=== PATIENT | female | born 1995 | race Hispanic/Latino ===

== ENCOUNTER 2019-03-04 15:09 | Inpatient (IN) | payer OTHER ==
[2019-03-04] MEDS ORDERED: MEPERIDINE HCL 25 MG/0.5 ML IV PRN (15:30)
[2019-03-04] MEDS ORDERED: MIDAZOLAM HCL 2 MG/2 ML INJ IV PRN (15:30)
[2019-03-04] MEDS ORDERED: OXYTOCIN 10 UNIT/ML ML IV ONE (15:37)
[2019-03-04] MEDS ORDERED: METHYLERGONOVINE 0.2MG/ML AMP IM ONE (15:38)
[2019-03-04] MEDS ORDERED: CARBOPROST TROME 250 MCG/ML IM ONE (15:38)
[2019-03-04] MEDS ORDERED: OXYTOCIN/LR 20 UNIT/1,000 ML BAG IV ONE (15:38)
[2019-03-04] MEDS ORDERED: LIDOCAINE 1% 20 ML MDV ONE ×2 (15:43→15:44)
[2019-03-04] MEDS ORDERED: MEPERIDINE HCL 25 MG/0.5 ML ONE (15:47)
[2019-03-04] MEDS ORDERED: LIDOCAINE 1% 20 ML MDV IV ONE (15:49)
[2019-03-04] MEDS ORDERED: MIDAZOLAM HCL 2 MG/2 ML INJ ONE (15:52)
[2019-03-04 16:00] LABS: RPR Titer ND
[2019-03-04 16:10] LABS: Absolute Lymphocytes (CBC) 1.1 K/uL (0.7-4.9); Basophils % 0.2 % (0-1.3); Eosinophils % 0.1 % (0-4.4); Lymphocytes % 7.9 % (15.3-44.8); MPV 9.5 fL (7.6-11.3); Monocytes % 3.9 % (3.3-12.3); RBC Red Blood Cell Count 4.21 M/uL (3.86-4.86)
[2019-03-04 16:14] LABS: Glucose Level 107 mg/dL (74-106)
[2019-03-04 17:15] LABS: Blood Morphology Comment NOT SEEN (NOT SEEN); Platelet Estimate ADEQ; Urine White Blood Cell Casts OK
[2019-03-04] MEDS ORDERED: METHYLERGONOVINE 0.2MG/ML AMP IM PRN (17:19)
[2019-03-04] MEDS ORDERED: DOCUSATE NA/SENNA CONC 1 TAB PO PRN (17:19)
[2019-03-04] MEDS ORDERED: BISACODYL 10 MG RECTAL SUPP RECT PRN (17:19)
[2019-03-04] MEDS ORDERED: ONDANSETRON 4 MG/2 ML VIAL IV PRN (17:19)
[2019-03-04] MEDS ORDERED: CARBOPROST TROME 250 MCG/ML IM PRN (17:19)
[2019-03-04] MEDS ORDERED: ACETAMINOPHEN 500 MG TAB PO PRN (17:19)
[2019-03-04] MEDS ORDERED: Rho(D) IG (HUMAN) 300 MCG SYR IM ONE (17:49)
[2019-03-04] MEDS ORDERED: OXYTOCIN/LR 20 UNIT/1,000 ML BAG IV SCH (18:00)
[2019-03-04] MEDS ORDERED: MEASLES,MUMPS,RUBELLA VAC 0.5ML SQVAC ONE (18:00)
[2019-03-04] MEDS ORDERED: Tdap (Diph,Pertuss(Acell),Tet Vac) 0.5 ML SYR IMVAC ONE (18:00)
[2019-03-04 18:08] LABS: Urine Appearance CLEAR; Urine Bilirubin NEGATIVE (NEG); Urine Blood NEGATIVE (NEG); Urine Color DK YELLOW; Urine Glucose NEGATIVE (NEG); Urine Protein TRACE (NEG); Urine pH 7.5 (5.0-7.0)
[2019-03-04 18:12] LABS: Urine Microscopic Reflex NO UMIC
[2019-03-04 18:27] LABS: Barbiturates NEGATIVE (NEGATIVE); Benzodiazepines NEGATIVE (NEGATIVE); Cocaine NEGATIVE (NEGATIVE); METHAMPHETAM POSITIVE (NEGATIVE); Methadone NEGATIVE (NEGATIVE); Opiates NEGATIVE (NEGATIVE); Phencyclidine NEGATIVE (NEGATIVE); THC Cannibis POSITIVE (NEGATIVE)
[2019-03-04 21:29] LABS: RPR (Rapid Plasma Reagin) NON-REACT (NON-REACT)
[2019-03-04 23:12] VITALS: BMI 25.7
[2019-03-05] MEDS: IBUPROFEN 200 MG TAB PO PRN (03:25)
[2019-03-05 05:13] LABS: Absolute Lymphocytes (CBC) 3.3 K/uL (0.7-4.9); Basophils % 0.2 % (0-1.3); Eosinophils % 0.3 % (0-4.4); Hematocrit 32.9 % (36.0-45.0); Lymphocytes % 19.8 % (15.3-44.8); MPV 9.8 fL (7.6-11.3); Monocytes % 4.9 % (3.3-12.3); RBC Red Blood Cell Count 3.69 M/uL (3.86-4.86)
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
--- NOTE | 2019-03-05 12:30 | PN ---
Subjective: Patient had a very good response to the first 25 mcg Cytotec, was vaishnavi every 1-2 minutes, therefore it was decided not to put in the second Cytotec. She progressed to approximately 3 cm, 60-70% effaced, vertex, well applied. She is still vaishnavi every 1-2 minutes. Baby looks very good. Vital signs are all stable. She had admission urinalysis, it looks somewhat suspicious f or a bladder infection. We will probably have the culture sometime tomorrow. Patient informed, this morning, rupture of membranes, clear fluid. The patient had Stadol during the night. Says her last delivery was completely natural without Stadol or anything but she came in active rapidly advancing labor. She can have more Stadol if she wishes and of course, if she wishes an epidural that is up to her too. Full labor talk again given this morning with the patient and . Anticipate deliver y sometime later today. SRIRAM/LIAM Voice ID: [id number] Report ID: [id number]
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
[2019-03-06] MEDS ORDERED: Tdap (Diph,Pertuss(Acell),Tet Vac) 0.5 ML SYR IMVAC ONE (09:44)
[2019-03-06] MEDS ORDERED: MEASLES,MUMPS,RUBELLA VAC 0.5ML SQVAC ONE (09:45)
[2019-03-06 11:19] VITALS: BP 116/65; TEMP 97.8
[2019-03-06] MEDS: IBUPROFEN 200 MG TAB PO PRN (17:35)
--- NOTE | 2019-03-07 06:05 | DS ---
Date of Discharge: 03/06/2019 Franca Sharpe, a 24-year-old primigravida at 34 weeks, followed antepartum by [facility], although it turns out, she had 1 visit. Came into our institution in advanced labor, delivered rapidly of a 4 pounds 7 ounce female, Apgars 9 and 9. Small first-degree lacerations repaired with 2-0 chromic. DICTATION ENDS HERE SRIRAM/LIAM Voice ID: [id number] Report ID: [id number]
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
[2019-03-08 02:49] LABS: HBsAG Nonreactive (Nonreactive)
== END 2019-03-06 18:11 | disposition home or self-care (01) | DRG 806 ==
LOC: L&D 15:09 → 2ND-WC 15:15
PROVIDERS: ADMIT Specialist; ATTEND Specialist
PROC: 10E0XZZ Delivery of Products of Conception, External Approach (ICD-10-PCS; principal; 2019-03-04)
PROC: 0HQ9XZZ Repair Perineum Skin, External Approach (ICD-10-PCS; 2019-03-04)
DX: O60.14X0 Preterm labor third trimester with preterm delivery third trimester, not applicable or unspecified (principal); O99.323 Drug use complicating pregnancy, third trimester; Z37.0 Single live birth; O70.0 First degree perineal laceration during delivery; Z3A.34 34 weeks gestation of pregnancy; O26.893 Other specified pregnancy related conditions, third trimester; Z67.91 Unspecified blood type, Rh negative; F15.90 Other stimulant use, unspecified, uncomplicated; F12.90 Cannabis use, unspecified, uncomplicated
CPT/HCPCS: 36415; 80307; 81003; 82947; 85025; 86592; 86762; 86850; 86900; 86901; 87086; 87088; 87340; 88307; 90471; 90707; 90715; G0433; J2175; J2210; J2250; J2590

== ENCOUNTER 2024-04-17 07:45 | Emergency (ER) | payer OTHER ==
--- OUTSIDE RECORDS SUMMARY | 2024-04-17 07:48 | XMS REPORT | Continuity of Care Document ---
Author Name Unknown Address [address] [place] [address] [facility] Address 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 Name Role Phone MONA FIERRO Primary Care Physician Unav ailDEBRA Sofia Attending Clinician UnavailDebra Hines CNM Attending Clinician [phone] Debra Woodward CNM Attending Clinician [phone] MONA FIERRO Attending Clinician Unavail able Vadim Mona GOMEZ Attending Clinician + Doctor Unassigned, [place] Attending Clinician U navailable [facility]ending [facility]ician Unava ilable FORTINO OHARA Attending Clinician Unavailab Fortino Hassan Attending Clinician + [phone] SAVANNAH ALTAMIRANO Attending Clinician UnavailSavannah Mclean Attending Clinician [phone] Tesha Romero MD Attending Clinician [phone] NADEGE NOLASCO Attending Clinician Unavailable NADEGE NOLASCO Attending Clinician Unavailable TESHA ROMERO Admitting Clinician Unavailable Payers Payer Name Policy Type Policy Number Effective Date Expirati on Date Source [facility] [id number] 00:00:00 [facility] [id number] Problems Condition Name Condition Details Condition Category Status Onset Date Resolution Date Last Treatment Date Treating Clinician Comments Source History of asthma History of asthma Disease Active 03-27 00:00: 00 Overview: Formattin g of this note might be different from the original. As child only [facility] Obesity affecting Obesity affecting Disease Active 03-27 00:00: 00 [facility] Rh negative state in antepartum period Rh negative state in antepartum period Disease Active 11-17 00:00: 00 Overview: Formattin g of this note might be different from the original. Rhogam at 28 weeks [facility] High-risk High-risk Disease Active 11-16 00:00: 00 [facility] History of delivery History of delivery Disease Active 11-16 00:00: 00 Overview: Formattin g of this note might be different from the original. Reports at 34 weeks PPROM [facility] Other general counseling and advice for contracept breezy management Other general counseling and advice for contracept breezy management Disease Resolve d 2019-08 0-15 00:00: 00 2024-03-26 00:00:00 2024-03-26 14:04:22 [facility] Abdominal pain, generalize d Abdominal pain, generalize d Disease Resolve d 2019-08 0-15 00:00: 00 2024-03-26 00:00:00 2024-03-26 14:04:18 [facility] Obesity (BMI 30-39.9) Obesity (BMI 30-39.9) Disease Resolve d 3 00:00: 00 2024-03-26 00:00:00 2024-03-26 14:04:24 [facility] care and examinatio n of lactating mother care and examinatio n of lactating mother Disease Resolve d 24 00:00: 00 2020-06-10 00:00:00 2020-06-10 14:06:15 [facility] Normal labor Normal labor Disease Resolve d 04-26 00:00: 2020-06-10 00:00:00 2020-06-10 14:06:38 [facility] 37 weeks gestation of 37 weeks gestation of Disease Resolve d 2019-0 8-31 00:00: 00 2020-06-10 00:00:00 2020-06-10 14:06:49 [facility] COVID-19 virus infection COVID-19 virus infection Disease Resolve d 2019- 8-31 00:00: 2020-06-10 00:00:00 2020-06-10 14:06:48 [facility] Liveborn , of silva , born in hospital by vaginal delivery Liveborn , of silva , born in hospital by vaginal delivery Disease Resolve d 8- 00:00: 00 2020-06-10 00:00:00 2020-06-10 14:06:42 [facility] Maternal varicella, non-immune Maternal varicella, non-immune Disease Active 2019- 3-24 00:00: 2020-06-10 00:00:00 2020-06-10 14:06:11 Overview: Formattin g of this note might be different from the original. Address pp [facility] Multiparit y Multiparit y Disease Resolve d 2019-0 3-23 00:00: 2020-06-10 00:00:00 2020-06-10 14:06:40 [facility] Family history of defect of abdominal wall Family history of defect of abdominal wall Disease Resolve d 2018-0 4-09 00:00: 2020-06-10 00:00:00 2020-06-10 14:06:45 [facility] Vaginal bleeding in Vaginal bleeding in Disease Resolve d 2019-0 7-23 00:00: 00 2020-04-26 00:00:00 2020-04-26 17:05:30 [facility] Yeast infection Yeast infection Disease Resolve d 2019-0 3-26 00:00: 00 2020-04-26 00:00:00 2020-04-26 17:05:32 [facility] Allergies, Adverse Reactions, Alerts Allergy Name Allergy Type Status Severity Reaction(s) Onset Date Inactive Date Treating Clinician Comments Source NO KNOWN ALLERGIE S Drug Class Active [facility] Social History Social Habit Start Date Stop Date Quantity Comments Source ASSERTION 2023-12-02 00:00:00 [facility] Alcoholic beverage intake 2024-03-26 00:00:00 2024-03-26 00:00:00 Ex-drinker (finding) [facility] Alcohol intake 2023-07-03 00:00:00 2023-07-03 00:00:00 Current non-drinker of alcohol (finding) [facility] Exposure to SARS-CoV-2 (event) 2022-10-08 00:00:00 2022-10-18 14:02:00 Not sure [facility] Tobacco use and exposure 2022-05-03 00:00:00 2022-05-03 00:00:00 Smokeless tobacco non-user [facility] History of Social function 2022-05-03 00:00:00 2022-05-03 00:00:00 [facility] Sex assigned at 1995 00:00:00 1995 00:00:00 [facility] Smoking Status Start Date Stop Date Source Never smoked tobacco [facility] Medications Ordered Medication Name Filled Medication Name Start Date Stop Date Current Medication? Ordering Clinician Indication Dosage Frequency Signature (SIG) Comments Components Source medroxyPROG ESTERone (DEPO-PROVE RA) syringe 150 mg 2022-08 15:30: 00 03-26 19:05 :03 No [id number] 150mg [facility] medroxyPROG ESTERone (DEPO-PROVE RA) syringe 150 mg 05-03 17:45: 00 10-18 20:04 :00 No [id number] 150mg 150 mg, Intramuscu lar, [id number], 3 doses, First dose on Sun05/03/22 at 1245, Last dose on Sun10/18/22 at 1245, Routine [facility] medroxyPROG ESTERone (DEPO-PROVE RA) injection 150 mg 3-17 21:30: 00 10-12 22:29 :00 No [id number] 150mg [facility] medroxyPROG ESTERone (DEPO-PROVE RA) injection 150 mg 2019-08 19:15: 00 03-02 15:04 :00 No [id number] 150mg [facility] vit calc,iron,f olic ( VITAMIN ORAL) 04-27 05:18: 34 04-27 00:00 :00 No Take by mouth. [facility] vitamin w/FA tablet 04-27 00:00: 00 11-10 00:00 :00 No [id number] 102 1{tbl} Take 1 tablet by mouth daily. [facility] docusate calcium 240 mg capsule 04-27 00:00: 00 11-10 00:00 :00 No [id number] 102 240mg Take 1 capsule by mouth once daily as needed for Constipati on. [facility] ferrous sulfate 325 mg (65 mg iron) tablet 04-27 00:00: 11-10 00:00 :00 No [id number] 102 325mg Take 1 tablet by mouth 2 (two) times daily. [facility] ibuprofen 600 mg tablet 04-27 00:00: 00 11-10 00:00 :00 No [id number] 102 600mg Take 1 tablet by mouth every 6 (six) hours as needed (Pain). Take with food or milk. [facility] vitamin w/FA tablet 04-27 00:00: 00 11-10 00:00 :00 No [id number] 102 1{tbl} Take 1 tablet by mouth daily. [facility] albuterol 90 mcg/actuati on inhaler 12-03 00:00: 11-10 00:00 :00 No [id number] 2{puff} Inhale 2 Puffs every 6 (six) hours as needed for Wheezing or Shortness of Breath. [facility] Immunizations Ordered Immunization Name Filled Immunization Name Date Status Comments Source HPV9 2020-12-09 00:00:00 Completed [facility] HPV9 2020-12-09 00:00:00 Completed [facility] HPV9 2020-12-09 00:00:00 Completed [facility] HPV9 2020-12-09 00:00:00 Completed [facility] HPV9 2020-12-09 00:00:00 Completed [facility] HPV9 2020-12-09 00:00:00 Completed [facility] HPV9 2020-09-02 00:00:00 Completed [facility] HPV9 2020-09-02 00:00:00 Completed [facility] HPV9 2020-09-02 00:00:00 Completed [facility] HPV9 2020-09-02 00:00:00 Completed [facility] HPV9 2020-09-02 00:00:00 Completed [facility] HPV9 2020-09-02 00:00:00 Completed [facility] HPV9 2020-06-10 00:00:00 Completed [facility] HPV9 2020-06-10 00:00:00 Completed [facility] HPV9 2020-06-10 00:00:00 Completed [facility] HPV9 2020-06-10 00:00:00 Completed [facility] HPV9 2020-06-10 00:00:00 Completed [facility] HPV9 2020-06-10 00:00:00 Completed [facility] TDAP 2020-03-03 00:00:00 Completed [facility] Rho (d) Immune Globulin 2020-03-03 00:00:00 Completed [facility] TDAP 2020-03-03 00:00:00 Completed [facility] Rho (d) Immune Globulin 2020-03-03 00:00:00 Completed [facility] TDAP 2020-03-03 00:00:00 Completed [facility] Rho (d) Immune Globulin 2020-03-03 00:00:00 Completed [facility] TDAP 2020-03-03 00:00:00 Completed [facility] Rho (d) Immune Globulin 2020-03-03 00:00:00 Completed [facility] TDAP 2020-03-03 00:00:00 Completed [facility] Rho (d) Immune Globulin 2020-03-03 00:00:00 Completed [facility] TDAP 2020-03-03 00:00:00 Completed [facility] Rho (d) Immune Globulin 2020-03-03 00:00:00 Completed [facility] TDAP Unknown Completed [facility] Rho (d) Immune Globulin Unknown Completed [facility] HPV9 Unknown Completed [facility] HPV9 Unknown Completed [facility] HPV9 Unknown Completed [facility] TDAP Unknown Completed [facility] Rho (d) Immune Globulin Unknown Completed [facility] HPV9 Unknown Completed [facility] TDAP Unknown Completed [facility] Rho (d) Immune Globulin Unknown Completed [facility] TDAP Unknown Completed [facility] Rho (d) Immune Globulin Unknown Completed [facility] TDAP Unknown Completed [facility] Rho (d) Immune Globulin Unknown Completed [facility] TDAP Unknown Completed [facility] Rho (d) Immune Globulin Unknown Completed [facility] TDAP Unknown Completed [facility] Rho (d) Immune Globulin Unknown Completed [facility] HPV9 Unknown Completed [facility] HPV9 Unknown Completed [facility] HPV9 Unknown Completed [facility] TDAP Unknown Completed [facility] Rho (d) Immune Globulin Unknown Completed [facility] HPV9 Unknown Completed [facility] HPV9 Unknown Completed [facility] HPV9 Unknown Completed [facility] TDAP Unknown Completed [facility] Rho (d) Immune Globulin Unknown Completed [facility] HPV9 Unknown Completed [facility] HPV9 Unknown Completed [facility] HPV9 Unknown Completed [facility] TDAP Unknown Completed [facility] Rho (d) Immune Globulin Unknown Completed [facility] HPV9 Unknown Completed [facility] HPV9 Unknown Completed [facility] HPV9 Unknown Completed [facility] TDAP Unknown Completed [facility] Rho (d) Immune Globulin Unknown Completed [facility] HPV9 Unknown Completed [facility] HPV9 Unknown Completed [facility] HPV9 Unknown Completed [facility] TDAP Unknown Completed [facility] Rho (d) Immune Globulin Unknown Completed [facility] HPV9 Unknown Completed [facility] HPV9 Unknown Completed [facility] HPV9 Unknown Completed [facility] Vital Signs Vital Name Observation Time Observation Value Comments S ource Systolic blood pressure 2024-03-26 18:38:00 122 mm[Hg] [facility] Diastolic blood pressure 2024-03-26 18:38:00 67 mm[Hg] [facility] Heart rate 2024-03-26 18:38:00 74 /min [facility] Body temperature 2024-03-26 18:38:00 36.61 Yolanda [facility] Body height 2024-03-26 18:38:00 162.6 cm [facility] Body weight 2024-03-26 18:38:00 88.089 kg [facility] BMI 2024-03-26 18:38:00 33.33 kg/m2 [facility] Systolic blood pressure 2023-07-03 14:08:00 122 mm[Hg] [facility] Diastolic blood pressure 2023-07-03 14:08:00 62 mm[Hg] [facility] Heart rate 2023-07-03 14:08:00 54 /min [facility] Body temperature 2023-07-03 14:08:00 35.94 Yolanda [facility] Respiratory rate 2023-07-03 14:08:00 18 /min [facility] Body height 2023-07-03 14:08:00 162.6 cm [facility] Body weight 2023-07-03 14:08:00 82.01 kg [facility] BMI 2023-07-03 14:08:00 31.03 kg/m2 [facility] Systolic blood pressure 2022-10-18 20:02:00 121 mm[Hg] [facility] Diastolic blood pressure 2022-10-18 20:02:00 77 mm[Hg] [facility] Heart rate 2022-10-18 20:02:00 71 /min [facility] Body temperature 2022-10-18 20:02:00 36.61 Yolanda [facility] Respiratory rate 2022-10-18 20:02:00 18 /min [facility] Body height 2022-10-18 20:02:00 162.6 cm [facility] Body weight 2022-10-18 20:02:00 81.829 kg [facility] BMI 2022-10-18 20:02:00 30.97 kg/m2 [facility] Systolic blood pressure 2022-07-26 20:01:00 110 mm[Hg] [facility] Diastolic blood pressure 2022-07-26 20:01:00 64 mm[Hg] [facility] Heart rate 2022-07-26 20:01:00 67 /min [facility] Body temperature 2022-07-26 20:01:00 36.56 Yolanda [facility] Respiratory rate 2022-07-26 20:01:00 17 /min [facility] Body height 2022-07-26 20:01:00 162.6 cm [facility] Body weight 2022-07-26 20:01:00 81.466 kg [facility] BMI 2022-07-26 20:01:00 30.83 kg/m2 [facility] Systolic blood pressure 2022-05-03 16:53:00 110 mm[Hg] [facility] Diastolic blood pressure 2022-05-03 16:53:00 62 mm[Hg] [facility] Heart rate 2022-05-03 16:53:00 68 /min [facility] Body temperature 2022-05-03 16:53:00 36.56 Yolanda [facility] Respiratory rate 2022-05-03 16:53:00 18 /min [facility] Body height 2022-05-03 16:53:00 162.6 cm [facility] Body weight 2022-05-03 16:53:00 80.241 kg [facility] BMI 2022-05-03 16:53:00 30.36 kg/m2 [facility] Systolic blood pressure 2022-02-02 18:25:00 118 mm[Hg] [facility] Diastolic blood pressure 2022-02-02 18:25:00 70 mm[Hg] [facility] Heart rate 2022-02-02 18:25:00 79 /min [facility] Body temperature 2022-02-02 18:25:00 36.61 Yolanda [facility] Respiratory rate 2022-02-02 18:25:00 18 /min [facility] Body weight 2022-02-02 18:25:00 77.384 kg [facility] BMI 2022-02-02 18:25:00 29.28 kg/m2 [facility] Systolic blood pressure 2021-11-10 20:38:00 125 mm[Hg] [facility] Diastolic blood pressure 2021-11-10 20:38:00 67 mm[Hg] [facility] Heart rate 2021-11-10 20:38:00 85 /min [facility] Body temperature 2021-11-10 20:38:00 36.44 Yolanda [facility] Respiratory rate 2021-11-10 20:38:00 16 /min [facility] Body height 2021-11-10 20:38:00 162.6 cm [facility] Body weight 2021-11-10 20:38:00 81.965 kg [facility] BMI 2021-11-10 20:38:00 31.02 kg/m2 [facility] Procedures Procedure Date / Time Performed Performing Clinician Source ALPHA FETOPROTEIN-MATERNAL SER 2024-03-26 19:35:00 Debra Woodward [facility] CBC WITH DIFF 2024-03-26 19:35:00 Debra Woodward [facility] GLYCOSYLATED HEMOGLOBIN (A1C) 2024-03-26 19:35:00 Debra Woodward [facility] HEPATITIS B SURFACE ANTIGEN 2024-03-26 19:35:00 Debra Woodward [facility] HCV ANTIBODY 2024-03-26 19:35:00 [facility] 2024-03-26 19:35:00 Debra Woodward [facility] POCT TEST 2024-03-26 18:39:00 Madisyn Woodward [facility] POCT URINALYSIS W/O SPECIFIC GRAVITY 2024-03-26 18:39:00 Debra Woodward [facility] POCT TEST 2023-07-03 14:18:00 Alonzo Fierro [facility] PATIENT FINANCIAL POLICY 2023-07-03 13:47:46 Doctor Unassigned, [place] [facility] ASSIGNMENT OF BENEFITS 2022-07-26 19:31:14 Docto r Unassigned, [place] [facility] POCT TEST 2021-11-10 20:41:00 Alonzo Fierro [facility] Encounters Start Date/Time End Date/Time Encounter Type Admission Type Attending [facility] Facility Care Department Encounter ID Source 2021-06-24 15:06:02 Outpatient P [facility] [id number] [facility] 2024-05-15 09:30:00 2024-05-15 09:30:00 Outpatient P [facility] [id number] [facility] 2024-03-31 00:00:00 2024-04-01 06:43:18 Telephone Debra Woodward [facility] MIXOLOGIST [facility] & CHILD [facility] [id number] 350.1.13.10 4.2.7.2.686 [id number] [facility] 2024-03-28 00:00:00 2024-03-28 13:39:18 Case Management Debra Woodward [facility] CHILD [facility] ..840.114 350.1.13.10 4.2.7.2.686 [id number] [facility] 2024-03-26 13:30:00 2024-03-26 14:34:14 Outpatient R DEBRA WOODWARD [facility] [id number] [facility] 2024-03-26 13:30:00 2024-03-26 14:34:14 Initial Visit Debra Woodward [facility] M[facility]OLOGIST [facility] CHILD [facility] 1..840.114 350.1.13.10 4.2.7.2.686 [id number] [facility] 2024-03-18 14:00:00 2024-03-18 14:00:00 Outpatient R MONA FIERRO [facility] [id number] [facility] 2024-03-13 09:00:00 2024-03-13 09:00:00 Outpatient R MONA FIEROR [facility] [id number] [facility] 2023-10-03 13:30:00 2023-10-03 13:30:00 Outpatient R DEBRA WOODWARD [facility] [id number] [facility] 2023-09-25 10:00:00 2023-09-25 10:00:00 Outpatient R [facility] [id number] [facility] 2023-07-03 08:15:00 2023-07-03 08:53:18 Outpatient R MONA FIERRO [facility] [id number] [facility] 2023-07-03 08:15:00 2023-07-03 08:53:18 Office Visit Mona Fierro [facility] 1.840.114 350.1.13.10 4.2.7.2.686 [id number] [facility] 2023-07-03 00:00:00 2023-07-03 00:00:00 Orders Only Doctor Unassigned, [place] [facility] 1.840.114 350.1.13.10 4.2.7.2.686 [id number] [facility] 2023-04-17 10:15:00 2023-04-17 10:15:00 Outpatient R DEBRA WOODWARD [facility] [id number] [facility] 2023-01-15 14:00:00 2023-01-15 14:00:00 Outpatient R [facility] [id number] [facility] 2022-10-18 13:30:00 2022-10-18 13:51:47 Outpatient R MONA FIERRO [facility] [id number] [facility] 2022-10-18 13:30:00 2022-10-18 13:51:47 [facility] M[facility] CHILD [facility] 1..840.114 350.1.13.10 4.2.7.2.686 [id number] [facility] 2022-07-26 13:30:00 2022-07-26 14:08:17 [facility] Visit [facility] 1..840.114 350.1.13.10 4.2.7.2.686 [id number] [facility] 2022-07-26 13:30:00 2022-07-26 13:30:00 Outpatient R [facility] [id number] [facility] 2022-07-26 13:30:00 2022-07-26 13:30:00 Outpatient R MONA FIERRO [facility] [id number] [facility] 2022-07-26 00:00:00 2022-07-26 00:00:00 Orders Only Doctor Unassigned, [place] [facility] ..840.114 350.1.13.10 4.2.7.2.686 [id number] [facility] 2022-05-03 10:30:00 2022-05-03 10:57:11 Outpatient R FORTINO OHARA [facility] [id number] [facility] 2022-05-03 10:30:00 2022-05-03 10:57:11 Nurse Visit Visit, [facility] Nurse Fortino Ohara [facility] MIXOLOGIST [facility] CHILD [facility] 1..840.114 350.1.13.10 4.2.7.2.686 [id number] [facility] 2022-04-27 14:00:00 2022-04-27 14:00:00 Outpatient FORTINO WINTERS [facility] [id number] [facility] 2022-02-02 14:30:00 2022-02-02 14:45:00 [facility] M[facility]OLOGIST [facility] ..840.114 350.1.13.10 4.2.7.2.686 [id number] [facility] 2022-02-02 14:30:00 2022-02-02 14:30:00 Outpatient R [facility] [id number] [facility] 2022-02-02 14:30:00 2022-02-02 14:30:00 Outpatient R MONA FIERRO [facility] [id number] [facility] 2021-11-10 15:30:00 2021-11-10 16:34:23 Outpatient R MONA FIERRO [facility] [id number] [facility] 2021-11-10 15:30:00 2021-11-10 16:34:23 Office Visit Mona Fierro [facility] ..840.114 350.1.13.10 4.2.7.2.686 [id number] [facility] 2021-09-07 15:00:00 2021-09-07 15:00:00 Outpatient FORTINO WINTERS [facility] [id number] [facility] 2021-08-29 13:00:00 2021-08-29 13:00:00 Outpatient Steven SAVANNAH ALTAMIRANO [facility] [id number] [facility] 2021-06-14 10:00:00 2021-06-14 10:00:00 Outpatient Steven SAVANNAH ALTAMIRANO [facility] [id number] [facility] 2021-06-06 13:45:27 2021-06-06 14:10:37 Nurse Visit Visit, [facility] Savannah Altamirano [facility] M[facility]OLOGIST [facility] [facility] 1.2.840.114 350.1.13.10 4.2.7.2.686 [id number] [facility] 2021-06-06 13:30:00 2021-06-06 13:30:00 Outpatient Steven SAVANNAH ALTAMIRANO [facility] [id number] [facility] 2021-06-06 00:00:00 2021-06-06 00:00:00 Orders Only Doctor Unassigned, [place] [facility] 1.2.840.114 350.1.13.10 4.2.7.2.686 [id number] [facility] 2021-05-25 10:30:00 2021-05-25 10:30:00 Outpatient R [facility] [id number] [facility] 2021-03-02 10:00:00 2021-03-02 10:00:00 Outpatient R [facility] [id number] [facility] 2021-02-23 00:00:00 2021-02-23 00:00:00 Patient Secure Msg Doctor Unassigned, [place] [facility] 1.2.840.114 350.1.13.10 4.2.7.2.686 [id number] [facility] 2021-02-21 14:00:00 2021-02-21 14:00:00 Outpatient R [facility] [id number] [facility] 2020-12-09 15:00:00 2020-12-09 15:00:00 Outpatient R [facility] [id number] [facility] 2020-11-29 13:00:00 2020-11-29 13:00:00 Outpatient R [facility] [id number] [facility] 2020-09-02 13:46:11 2020-09-02 14:11:52 Nurse Visit Visit, Ang-Rmchp Nurse [facility] MIXOLOGIST [facility] CHILD [facility] 1.2.840.114 350.1.13.10 4.2.7.2.686 [id number] 2020-09-02 13:30:00 2020-09-02 13:30:00 Outpatient R [facility] [id number] [facility] 2020-09-02 00:00:00 2020-09-02 00:00:00 [facility] 1.2.840.114 350.1.13.10 4.2.7.2.686 [id number] 2020-06-24 00:00:00 2020-06-24 00:00:00 Patient Secure Msg Doctor Unassigned, [place] [facility] MIXOLOGIST [facility] 1.2.840.114 350.1.13.10 4.2.7.2.686 [id number] [facility] 2020-06-10 13:32:21 2020-06-10 14:35:01 Office Visit Mona Fierro [facility] MIXOLOGIST [facility] CHILD [facility] 1.2.840.114 350.1.13.10 4.2.7.2.686 [id number] 2020-06-10 13:45:00 2020-06-10 13:45:00 Outpatient R MONA FIERRO [facility] [id number] [facility] 2020-06-10 13:15:00 2020-06-10 13:15:00 Outpatient R FORTINO OHARA [facility] [id number] [facility] 2020-05-20 14:30:00 2020-05-20 14:30:00 Outpatient FORTINO WINTERS [facility] [id number] [facility] 2020-05-20 00:00:00 2020-05-20 00:00:00 Patient Secure Msg Doctor Unassigned, [place] [facility] MIXOLOGIST [facility] 1.2.840.114 350.1.13.10 4.2.7.2.686 [id number] [facility] 2020-05-19 10:45:00 2020-05-19 10:45:00 Outpatient Steven LEV FORTINO [facility] [id number] [facility] 2020-05-04 00:00:00 2020-05-04 00:00:00 Patient Secure Msg Tesha Romero [facility] 1.2.840.114 350.1.13.10 4.2.7.2.686 [id number] [facility] 2020-04-30 00:00:00 2020-04-30 00:00:00 Patient Secure Msg Tesha Romero [facility] 1.2.840.114 350.1.13.10 4.2.7.2.686 [id number] [facility] 2020-04-29 14:00:00 2020-04-29 14:00:00 Outpatient FORTINO WINTERS [facility] [id number] [facility] 2020-04-26 14:00:00 2020-04-26 14:00:00 Outpatient SAVANNAH NAGEL [facility] [id number] [facility] 2020-04-20 13:45:00 2020-04-20 13:45:00 Outpatient FORTINO WINTERS [facility] [id number] [facility] 2020-04-13 15:15:00 2020-04-13 15:15:00 Outpatient P [facility] [id number] [facility] 2020-04-07 15:30:00 2020-04-07 15:30:00 Outpatient R MONA FIERRO [facility] [id number] [facility] 2020-04-01 14:00:00 2020-04-01 14:00:00 Outpatient R MARILYNJEANETTEMONA [facility] [id number] [facility] 2020-03-19 00:00:00 2020-03-19 00:00:00 Patient Secure Msg Doctor Unassigned, [place] [facility] MIXOLOGIST [facility] 1.2.840.114 350.1.13.10 4.2.7.2.686 [id number] [facility] 2020-03-18 12:45:00 2020-03-18 12:45:00 Outpatient R AKINSIJEANETTEMONA [facility] [id number] [facility] 2020-03-17 13:00:00 2020-03-17 13:00:00 Outpatient R AKINSIJEANETTEMONA [facility] [id number] [facility] 2020-03-10 15:30:00 2020-03-10 15:30:00 Outpatient R AKINSIPEMONA [facility] [id number] [facility] 2020-03-03 13:00:00 2020-03-03 13:00:00 Outpatient R [facility] [id number] [facility] 2020-02-26 13:30:00 2020-02-26 13:30:00 Outpatient R [facility] [id number] [facility] 2020-02-25 16:00:00 2020-02-25 16:00:00 Outpatient R AKINSIJEANETTEMONA [facility] [id number] [facility] 2020-02-20 12:45:00 2020-02-20 12:45:00 Outpatient R AKINSIPE MONA [facility] [id number] [facility] 2020-02-13 10:30:00 2020-02-13 10:30:00 Outpatient R AKINYESSYMONA [facility] [id number] [facility] 2020-02-05 15:15:00 2020-02-05 15:15:00 Outpatient R AKINYESSYMONA [facility] [id number] [facility] 2020-02-02 14:45:00 2020-02-02 14:45:00 Outpatient P [facility] [id number] [facility] 2020-01-22 14:00:00 2020-01-22 14:00:00 Outpatient R AKINSIJEANETTE MONA [facility] [id number] [facility] 2020-01-15 13:00:00 2020-01-15 13:00:00 Outpatient P [facility] [id number] [facility] 2020-01-07 14:00:00 2020-01-07 14:00:00 Outpatient R AKINYESSY MONA [facility] [id number] [facility] 2020-01-01 14:30:00 2020-01-01 14:30:00 Outpatient R NOLASCO, ANGUS GREENETA [facility] [id number] [facility] 2019-12-31 13:00:00 2019-12-31 13:00:00 Outpatient P [facility] [id number] [facility] 2019-12-24 10:30:00 2019-12-24 10:30:00 Outpatient R [facility] [id number] [facility] 2019-12-16 15:45:00 2019-12-16 15:45:00 Outpatient R AKINSIJEANETTE MONA [facility] [id number] [facility] 2019-12-15 15:30:00 2019-12-15 15:30:00 Outpatient R AKINSIMEJIA REIDMONA [facility] [id number] [facility] 2019-11-17 13:00:00 2019-11-17 13:00:00 Outpatient R AKINSIMEJIA REIDMONA [facility] [id number] [facility] Results Test Description Test Time Test Comments Results Result Co mments [id number] 18:39:00* Test Item Value Reference Range Interpretation Comme nts POCT PREG (test code = 1605) Positive On board controls acceptable with C Line (test code = 3574) Yes POCT PREG LOT # (test code = 3575) POCT PREG TEST DATE ( test code = 3576) Lab Interpretation (test cod e = 71700-7) Normal [facility] [id number] 14:18:00* Test Item Value Reference Range Interpretation Comme nts POCT PREG (test code = 1605) Negative On board controls acceptable with C Line (test code = 3574) Yes POCT PREG LOT # (test code = 3575) POCT PREG TEST DATE ( test code = 3576) [facility] [id number] 14:18:00* Test Item Value Reference Range Interpretation Comme nts POCT PREG (test code = 1605) Negative On board controls acceptable with C Line (test code = 3574) Yes POCT PREG LOT # (test code = 3575) POCT PREG TEST DATE ( test code = 3576) [facility] [id number] 20:41:00* Test Item Value Reference Range Interpretation Comme nts POCT PREG (test code = 1605) Negative On board controls acceptable with C Line (test code = 3574) Yes POCT PREG LOT # (test code = 3575) POCT PREG TEST DATE ( test code = 3576) [facility] Notes Date/Time Note Provider Source 2024-03-31 15:48:45 Franca Sharpe is a 29 year old female Pt is calling to get orders placed for an u/s . Please call ET Telle[facility]
[2024-04-17] MEDS ORDERED: PROMETHAZINE 25 MG TABLET ONE (08:02)
[2024-04-17] MEDS ORDERED: AMOX/K CLAV 875 MG TAB ONE (08:02)
--- NOTE | 2024-04-17 08:07 | ER ---
Nurse's Notes [facility] Name: Franca Sharpe Age: 29 yrs Sex: Female : 1995 Arrival Date: 04/17/2024 Time: 07:45 Bed 14 Private MD: Diagnosis: Dental caries, unspecified Presentation: 04/17 07:47 Chief complaint: EMS states: Pt brought in via EMS for c/o Lt sided toothache and dd2 headache. Pt states she is 6 months . Coronavirus screen: At this time, the client does not indicate any symptoms associated with coronavirus-19. Ebola Screen: No symptoms or risks identified at this time. Initial Sepsis Screen: Does the patient meet any 2 criteria? No. Patient's initial sepsis screen is negative. Does the patient have a suspected source of infection? No. Patient's initial sepsis screen is negative. Risk Assessment: Do you want to hurt yourself or someone else? Patient reports no desire to harm self or others. Onset of symptoms is unknown. 07:47 Method Of Arrival: EMS: [facility] dd2 07:47 Acuity: ERIC 4 dd2 Triage Assessment: 07:49 General: Appears in no apparent distress. Behavior is calm, cooperative. Pain: dd2 Complains of pain in Lt sided tooth pain. EENT: Poor dentition noted. Reports pain in Lt sided tooth pain. 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 - Infectious Disease History:: Denies. - Social history:: Smoking status: Patient denies any tobacco usage or history of. - Family history:: not pertinent. Screenin:53 [facility] ED Fall Risk Assessment (Adult) History of falling in the last 3 months, dd2 including since admission No falls in past 3 months (0 pts) Confusion or Disorientation No (0 pts) Intoxicated or Sedated No (0 pts) Impaired Gait No (0 pts) Mobility Assist Device Used No (0 pt) Altered Elimination No (0 pt) Score/Fall Risk Level 0 - 2 = Low Risk Oriented to surroundings, Maintained a safe environment, Hourly rounding (assess needs \T\ fall precautionary measures) done. Abuse screen: Denies threats or abuse. Nutritional screening: No deficits noted. Tuberculosis screening: No symptoms or risk factors identified. Assessment: 07:53 Neuro: No deficits noted. Cardiovascular: No deficits noted. Respiratory: No deficits dd2 noted. GI: Reports nausea. : No deficits noted. EENT: No deficits noted. Derm: No deficits noted. Musculoskeletal: No deficits noted. Vital Signs: 07:47 BP 113 / 69; Pulse 73; Resp 15; Temp 98.2; Pulse Ox 100% ; dd2 ED Course: 07:46 Patient arrived in ED. dd2 07:46 CABRERA SUTHERLAND, RN is Primary Nurse. dd2 07:46 Héctor Aguilar MD is Attending Physician. rt 07:49 Triage completed. dd2 07:49 Arm band placed on right wrist. Patient placed in an exam room, on a stretcher, on dd2 oxygen, Patient notified of wait time. 07:53 Patient has correct armband on for positive identification. Bed in low position. Call dd2 light in reach. Provided Education on: call light. 07:53 No provider procedures requiring assistance completed. Patient did not have IV access dd2 during this emergency room visit. Administered Medications: 08:04 Drug: Amoxicillin PO 875 mg PO once Route: PO; dd2 08:12 Follow up: Response: Medication administered at discharge. dd2 08:04 Drug: Promethazine PO 25 mg PO once Route: PO; dd2 08:11 Follow up: Response: Medication administered at discharge. dd2 Medication: 07:53 VIS not applicable for this client. dd2 Outcome: 08:06 Discharge ordered by . rt 08:12 Discharged to home ambulatory, dd2 08:12 Condition: stable 08:12 Discharge instructions given to patient, Instructed on discharge instructions, follow up and referral plans. medication usage, Demonstrated understanding of instructions, follow-up care, medications, Prescriptions given X 2, 08:12 Patient left the ED. dd2 Signatures: Héctor Aguilar MD MD rt CABRERA SUTHERLAND, RN RN dd2 Corrections: (The following items were deleted from the chart) 07:58 07:53 GI: No deficits noted. dd2 dd2 08:06 07:49 EENT: Reports pain in Lt sided tooth pain dd2 dd2
--- NOTE | 2024-04-17 08:07 | EDPHYS ---
Physician Documentation [facility] Name: Franca Sharpe Age: 29 yrs Sex: Female : 1995 Arrival Date: 04/17/2024 Time: 07:45 Bed 14 Private MD: ED Physician Héctor Aguilar HPI: 04/17 09:10 This 29 yrs old Female presents to ER via EMS with complaints of Toothache. rt 09:10 Patient presents to the ED with several days of bilateral toothache. Patient states rt that she has multiple dental cavities, and has an appointment with a dentist next week. Reports the pain has worsened. Denies other acute complaints at this time, symptoms are moderate in severity, no other aggravating or alleviating factors.. 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 - Infectious Disease History:: Denies. - Social history:: Smoking status: Patient denies any tobacco usage or history of. - Family history:: not pertinent. ROS: 09:10 Constitutional: Negative for fever, chills, and weight loss, Cardiovascular: Negative rt for chest pain, palpitations, and edema, Respiratory: Negative for shortness of breath, cough, wheezing, and pleuritic chest pain, Abdomen/GI: Negative for abdominal pain, nausea, vomiting, diarrhea, and constipation, MS/Extremity: Negative for injury and deformity, Skin: Negative for injury, rash, and discoloration, Neuro: Negative for headache, weakness, numbness, tingling, and seizure, 09:10 ENT: Positive for dental pain, Negative for Difficulty swallowing, Exam: 09:10 Constitutional: This is a well developed, well nourished patient who is awake, alert, rt and in no acute distress. Head/Face: Normocephalic, atraumatic. Chest/axilla: Normal chest wall appearance and motion. Nontender with no deformity. No lesions are appreciated. Cardiovascular: Regular rate and rhythm with a normal S1 and S2. No gallops, murmurs, or rubs. Normal PMI, no JVD. No pulse deficits. Respiratory: Lungs have equal breath sounds bilaterally, clear to auscultation and percussion. No rales, rhonchi or wheezes noted. No increased work of breathing, no retractions or nasal flaring. Abdomen/GI: Soft, non-tender, with normal bowel sounds. No distension or tympany. No guarding or rebound. No evidence of tenderness throughout. 09:10 ENT: Multiple dental caries noted, no drainable abscess. Vital Signs: 07:47 BP 113 / 69; Pulse 73; Resp 15; Temp 98.2; Pulse Ox 100% ; dd2 MDM: 07:51 Patient medically screened. rt 09:10 Differential diagnosis: dental caries, dental abscess. Data reviewed: vital signs, rt nurses notes. I considered the following discharge prescriptions or medication management in the emergency department Medications were administered in the Emergency Department. See MAR. 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 Counseling: I had a detailed discussion with the patient and/or guardian regarding the historical points, exam findings, and any diagnostic results supporting the discharge/admit diagnosis, the need for outpatient follow up. Administered Medications: 08:04 Drug: Amoxicillin PO 875 mg PO once Route: PO; dd2 08:12 Follow up: Response: Medication administered at discharge. dd2 08:04 Drug: Promethazine PO 25 mg PO once Route: PO; dd2 08:11 Follow up: Response: Medication administered at discharge. dd2 Disposition Summary: 04/17/24 08:06 Discharge Ordered Notes: Location: Home rt Problem: new rt Symptoms: are unchanged rt Condition: Stable rt Diagnosis - Dental caries, unspecified rt Followup: rt - With: Private Physician - When: 5 - 6 days - Reason: Discharge Instructions: - Discharge Summary Sheet rt - Dental Caries, Adult rt Forms: - Medication Reconciliation Form rt - Antibiotic Education rt - Prescription Opioid Use rt - Patient Portal Instructions rt - Leadership Thank You Letter rt Prescriptions: - Amoxicillin 875 mg Oral Tablet - take 1 tablet ORAL route every 12 hours for 10 days; 20 tablet; Refills: 0, rt Product Selection Permitted - promethazine 25 mg Oral Tablet - take 1 tablet ORAL route every 6 hours As needed; 20 tablet; Refills: 0, rt Product Selection Permitted Signatures: Héctor Aguilar MD MD rt CABRERA SUTHERLAND, RN RN dd2
[2024-04-17 08:18] VITALS: BP 113/69; TEMP 98.2; O2SAT 100
== END 2024-04-17 08:12 | disposition home or self-care (01) ==
LOC: ER 07:45
DX: K02.9 Dental caries, unspecified (principal)
CPT/HCPCS: 99284; Q0169